=== PATIENT | female | born 1990 | race Caucasian/White ===

== ENCOUNTER → 2020-03-04 15:12 | Outpatient (CLI) | payer OTHER, SELFPAY ==
--- NOTE | ~2020-03-04 | US_ITS ---
EXAMINATION: US pelvic complete DATE: 03/04/2020 15:31 INDICATION: Abnormal uterine bleeding. Pelvic pain. Polycystic ovary disease. Comparison:No prior studies for comparison. TECHNIQUE: Multiple transabdominal and endovaginal sonographic images of the pelvis performed. FINDINGS: The uterus measures 6.2 x 2.6 x 3.7 cm. The endometrial complex measures 4 mm. The right ovary measures 1.6 x 1.8 x 1.9 cm and the left ovary measures 2.5 x 1.9 x 2.8 cm. There ar e small follicles in each ovary. There is no free fluid in the pelvis. There are no abnormal masses seen on either side. IMPRESSION: 1. Normal pelvic ultrasound Reviewed, dictated and finalized at location A. ATTENDANT IMPRESSION: 1. Normal pelvic ultrasound
== END ==
PROVIDERS: PCP Internal Medicine; Visit Provider Nurse Practitioner
DX: R10.2 Pelvic and perineal pain (principal); N93.8 Other specified abnormal uterine and vaginal bleeding
CPT/HCPCS: 76856